=== PATIENT | male | born 1975 | race Caucasian/White ===

== ENCOUNTER 2017-01-25 12:49 | Emergency (ER) | payer OTHER ==
[~2017-01-25] VITALS: Ht 170.2 cm; Wt 70.5 kg
[2017-01-25] MEDS ORDERED: MELO-273 PO (13:01)
[2017-01-25] MEDS ORDERED: LIB25 PO (13:01)
[2017-01-25] MEDS ORDERED: DiphenhydrAMINE HCL 25 MG CAPSULE PO ONE (14:00)
[2017-01-25 14:28] VITALS: BP 158/92
== END 2017-01-25 14:44 | disposition home or self-care (01) ==
LOC: EMS 12:51
DX: L50.9 Urticaria, unspecified (principal); F17.210 Nicotine dependence, cigarettes, uncomplicated
CPT/HCPCS: 99282; 99283